=== PATIENT | female | born 1995 | race Caucasian/White ===

== ENCOUNTER 2025-03-14 15:30 | Day surgery (SDC) | payer SELFPAY ==
[2025-03-14] MEDS ORDERED: hydrALAZINE 20 MG/ML VIAL SLOW IVP PRN (15:59)
[2025-03-14 16:21] VITALS: BMI 35.1
[2025-03-14 17:03] LABS: #Basophils 0.03 10x3/uL (0.0-0.2); #Eosinophils Less than 0.03 10x3/uL (0.0-0.5); #Monocytes 0.46 10x3/uL (0.0-1.1); #Neutrophils 5.69 10x3/uL (1.5-8.4); %Basophils 0.4 % (0.0-2.0); %Eosinophils 0.1 % (0.0-6.0); %Lymphocytes 22.7 % (18.0-47.0); %Monocytes 5.7 % (0.0-10.0); %Neutrophils 70.9 % (40.0-75.0); Hematocrit 33.6 % (34.9-44.5); Hemoglobin 10.9 g/dL (12.0-15.5); Mean Corpuscular Hemoglobin 25.2 pg (27.0-33.0); Mean Corpuscular Volume 77.8 fL (81.6-98.3); Platelet Count 175 10x3/uL (150-450); Red Blood Cell (RBC) Count 4.32 10x6/uL (3.90-5.03); White Blood Cell (WBC) Count 8.03 10x3/uL (3.5-10.5)
[2025-03-14 17:04] LABS: Protein, Urine Random Quant 449.0 mg/dL (1-14)
[2025-03-14 17:26] LABS: ALT (SGPT) 15 U/L (Less than 34); AST (SGOT) 35 U/L (11-34); Albumin 2.4 g/dL (3.1-4.5); Alkaline Phosphatase 222 U/L (40-110); Anion Gap 15 mmol/L (10-20); BUN (Urea Nitrogen) 5 mg/dL (7.0-18.7); Bilirubin, Total 0.3 mg/dL (0.3-1.2); Calc. Creatinine Clearance 149 mL/min (70-130); Calcium 8.8 mg/dL (7.8-10.44); Carbon Dioxide 21 mmol/L (22-29); Chloride 108 mmol/L (98-107); Globulin 4.0 g/dL (2.4-3.5); Glucose 67 mg/dL (70-105); Potassium 3.5 mmol/L (3.5-5.1); Sodium 140 mmol/L (136-145)
== END 2025-03-14 17:51 | disposition home or self-care (01) ==
LOC: CSHLD/OP 15:30
PROVIDERS: ATTEND Family Medicine
DX: O14.03 Mild to moderate pre-eclampsia, third trimester (principal); O47.03 False labor before 37 completed weeks of gestation, third trimester; O26.833 Pregnancy related renal disease, third trimester; Q63.2 Ectopic kidney; Z3A.31 31 weeks gestation of pregnancy; Z91.041 Radiographic dye allergy status; Z91.013 Allergy to seafood
CPT/HCPCS: 36415; 80053; 82570; 84156; 85025

== ENCOUNTER 2025-03-18 01:49 | Inpatient (IN) | payer MEDICAID, SELFPAY ==
[2025-03-18] MEDS ORDERED: Bicitra 30 ML UDCUP PO PRN (02:12)
[2025-03-18] MEDS ORDERED: Famotidine/PF 20 mg/2ml Vial SLOW IVP PRN (02:12)
[2025-03-18] MEDS ORDERED: Tranexamic Acid 1,000 MG/10 ML VIAL IVP PRN (02:13)
[2025-03-18] MEDS ORDERED: Diphenoxylate HCl/Atropine Tablet PO PRN ×2 (02:13)
[2025-03-18] MEDS ORDERED: Carboprost 250 MCG/ML AMP IM PRN (02:13)
[2025-03-18] MEDS ORDERED: Ondansetron PF 4 MG/2 ML Vial IVP PRN (02:13)
[2025-03-18] MEDS ORDERED: Methylergonovine 0.2 MG/ML VIAL IM PRN (02:13)
[2025-03-18] MEDS ORDERED: hydrALAZINE 20 MG/ML VIAL SLOW IVP PRN (02:13)
[2025-03-18] MEDS ORDERED: Oxytocin 30 units/NS 500 ML 500 ML IV SCH (02:15)
[2025-03-18] MEDS ORDERED: diphenhydrAMINE 25 MG CAP PO PRN (02:46)
[2025-03-18] MEDS ORDERED: diphenhydrAMINE 50 MG/ML VIAL IVP PRN (02:46)
[2025-03-18] MEDS ORDERED: diphenhydrAMINE 50 MG/ML VIAL IM PRN (02:46)
[2025-03-18 02:56] VITALS: BMI 34.3
[2025-03-18] MEDS ORDERED: Communication Order-Pharmacy FS SCH (03:00)
[2025-03-18 03:47] LABS: Analyzer IN Cardio CS NICU; Critical Notified By: CP.PH; pH (Cord, venous) 7.348 (7.250-7.350)
[2025-03-18 03:54] LABS: Analyzer IN Cardio CS NICU; Critical Notified By: CP.PH
[2025-03-18] MEDS ORDERED: Calcium Gluc 4.6 MEQ/10 ML (100 MG/ML) SLOW IVP PRN (03:55)
[2025-03-18] MEDS: fentaNYL Citrate/PF 55 ML IV SCH (04:27)
[2025-03-18 05:00] LABS: Hep B Surf Ag - L&D Non-Reactive S/CO (NonReactive)
[2025-03-18 05:02] LABS: Syphilis Antibody Index 0.07 S/CO (<1.00 Non-Reactive)
[2025-03-18 05:03] LABS: Platelet Count 173 10x3/uL (150-450)
[2025-03-18 05:04] LABS: Hematocrit 30.1 % (34.9-44.5); Hemoglobin 9.8 g/dL (12.0-15.5); Mean Corpuscular Hemoglobin 24.9 pg (27.0-33.0); Mean Corpuscular Volume 76.6 fL (81.6-98.3); Red Blood Cell (RBC) Count 3.93 10x6/uL (3.90-5.03); White Blood Cell (WBC) Count 15.31 10x3/uL (3.5-10.5)
[2025-03-18 06:14] LABS: HIV (1/2) Antibody/Antigen Non-Reactive (NonReactive); HIV 1/2 INDEX 0.11 S/CO (<1.00)
[2025-03-18] MEDS: Ondansetron PF 4 MG/2 ML Vial IVP PRN (18:51)
[2025-03-18] MEDS: Magnesium Sulfate 20 gm/500 ml 20 GM/500 ML BAG IVPB SCH (21:31)
[2025-03-19] MEDS ORDERED: SUCCINYLCHOLINE/SOD CL,ISO/PF 200 MG/10 ML SYRINGE FS ONE (02:00)
[2025-03-19] MEDS ORDERED: Oxytocin 10 UNITS/ML VIAL ONE (02:00)
[2025-03-19] MEDS: hydrALAZINE 20 MG/ML VIAL SLOW IVP SCH (04:54)
[2025-03-19 06:07] LABS: Hematocrit 32.1 % (34.9-44.5); Hemoglobin 10.8 g/dL (12.0-15.5); Mean Corpuscular Hemoglobin 25.7 pg (27.0-33.0); Mean Corpuscular Volume 76.4 fL (81.6-98.3); Platelet Count 191 10x3/uL (150-450); Red Blood Cell (RBC) Count 4.20 10x6/uL (3.90-5.03); White Blood Cell (WBC) Count 17.78 10x3/uL (3.5-10.5)
[2025-03-19] MEDS: Ibuprofen 800 MG TAB PO PRN (09:15)
[2025-03-19] MEDS: Metoprolol Succinate XL 25 MG ER.TAB PO SCH (13:00)
[2025-03-20] MEDS: PROPOFOL 20 ML ONE (20:54)
[2025-03-20] MEDS: Dexamethasone 10 MG/ML VIAL ONE (20:54)
[2025-03-20] MEDS: Magnesium Sulfate 20 gm/500 ml 20 GM/500 ML BAG ONE (20:54)
[2025-03-20] MEDS: Oxytocin 10 UNITS/ML VIAL ONE (20:54)
[2025-03-20] MEDS: CEFAZOLIN 1 GM VIAL ONE ×2 (20:54)
[2025-03-21] MEDS: HYDROcodone/Acetaminophen 5/325 mg Tablet PO PRN ×2 (08:32→13:13)
[2025-03-21 16:19] VITALS: TEMP 98.1
[2025-03-21 16:33] VITALS: BP 139/95
== END 2025-03-21 19:15 | disposition home or self-care (01) | DRG 788 ==
LOC: CSHLD/OP 01:49 → CSHLD 02:44 → CSHPP 03-19 11:00
PROVIDERS: ADMIT Family Medicine; ATTEND Family Medicine
PROC: 10D00Z1 Extraction of Products of Conception, Low, Open Approach (ICD-10-PCS; principal; 2025-03-18)
PROC: 4A1HXCZ Monitoring of Products of Conception, Cardiac Rate, External Approach (ICD-10-PCS; 2025-03-18)
DX: O14.94 Unspecified pre-eclampsia, complicating childbirth (principal); O45.93 Premature separation of placenta, unspecified, third trimester; Z3A.32 32 weeks gestation of pregnancy; Z37.0 Single live birth; Z91.013 Allergy to seafood; Z91.041 Radiographic dye allergy status; O32.0XX0 Maternal care for unstable lie, not applicable or unspecified; O99.893 Other specified diseases and conditions complicating puerperium; R11.0 Nausea
CPT/HCPCS: 36415; 36430; 51702; 82805; 85027; 86780; 86850; 86900; 86901; 87340; 87389; 88307; 99285; J0360; J0690; J1100; J2405; J2550; J2590; J2704; J3010; J3475; J7120; Q0162

== ENCOUNTER 2025-04-02 00:08 | Inpatient (IN) | payer MEDICAID ==
[2025-04-02 01:08] LABS: Glucose, Urine (Dipstick) Normal (Negative); Protein, Urine (Dipstick) 30 mg/dl (Neg-Trace); Specific Gravity, Urine 1.010 (1.005-1.030)
[2025-04-02 01:23] LABS: #Basophils 0.05 10x3/uL (0.0-0.2); #Eosinophils 0.11 10x3/uL (0.0-0.5); #Monocytes 0.56 10x3/uL (0.0-1.1); #Neutrophils 4.61 10x3/uL (1.5-8.4); %Basophils 0.6 % (0.0-2.0); %Eosinophils 1.4 % (0.0-6.0); %Lymphocytes 30.8 % (18.0-47.0); %Monocytes 7.2 % (0.0-10.0); %Neutrophils 59.6 % (40.0-75.0); Hematocrit 29.1 % (34.9-44.5); Hemoglobin 9.1 g/dL (12.0-15.5); Mean Corpuscular Hemoglobin 24.9 pg (27.0-33.0); Mean Corpuscular Volume 79.5 fL (81.6-98.3); Platelet Count 341 10x3/uL (150-450); Red Blood Cell (RBC) Count 3.66 10x6/uL (3.90-5.03); White Blood Cell (WBC) Count 7.75 10x3/uL (3.5-10.5)
[2025-04-02 01:32] VITALS: BMI 31.1
[2025-04-02 01:34] LABS: Protein, Urine Random Quant 11.0 mg/dL (1-14)
[2025-04-02 01:40] LABS: Leukocyte 250 (Negative)
[2025-04-02 01:41] LABS: ALT (SGPT) 9 U/L (Less than 34); AST (SGOT) 23 U/L (11-34); Albumin 3.4 g/dL (3.1-4.5); Alkaline Phosphatase 131 U/L (40-110); Anion Gap 15 mmol/L (10-20); BUN (Urea Nitrogen) 6 mg/dL (7.0-18.7); Bilirubin, Total 0.3 mg/dL (0.3-1.2); Calc. Creatinine Clearance 117 mL/min (70-130); Calcium 8.8 mg/dL (7.8-10.44); Carbon Dioxide 22 mmol/L (22-29); Chloride 107 mmol/L (98-107); Globulin 3.4 g/dL (2.4-3.5); Glucose 85 mg/dL (70-105); Potassium 3.3 mmol/L (3.5-5.1); Sodium 141 mmol/L (136-145)
[2025-04-02 01:42] LABS: Bacteria/HPF 1+ HPF (None Seen); CAUTI Indications for Culture Pelvic or flank pain
[2025-04-02 01:43] LABS: Urine Culture Reflex No No
[2025-04-02] MEDS ORDERED: Calcium Gluc 4.6 MEQ/10 ML (100 MG/ML) SLOW IVP PRN (01:47)
[2025-04-02] MEDS ORDERED: Magnesium Sulfate 20 gm/500 ml 20 GM/500 ML BAG IVPB SCH (02:00)
[2025-04-02] MEDS ORDERED: Ibuprofen 200 MG TAB PO PRN (02:51)
[2025-04-02] MEDS: cefTRIAXone\\ROCEPHIN 1 GM in Sodium Chloride 0.9% 100 ML IVPB SCH (03:19)
[2025-04-02] MEDS: Potassium Chloride 10 MEQ in Premix 1 BAG IVPB SCH (04:33)
[2025-04-02] MEDS: Ondansetron PF 4 MG/2 ML Vial IVP PRN (11:05)
[2025-04-02 11:27] LABS: Magnesium 7.7 mg/dL (1.6-2.6)
[2025-04-02] MEDS: Acetaminophen 325 MG TAB PO PRN (19:56)
[2025-04-03 05:34] LABS: ALT (SGPT) 11 U/L (Less than 34); AST (SGOT) 31 U/L (11-34); Albumin 3.4 g/dL (3.1-4.5); Alkaline Phosphatase 131 U/L (40-110); Anion Gap 13 mmol/L (10-20); BUN (Urea Nitrogen) 5 mg/dL (7.0-18.7); Bilirubin, Total 0.3 mg/dL (0.3-1.2); Calc. Creatinine Clearance 113 mL/min (70-130); Calcium 7.3 mg/dL (7.8-10.44); Carbon Dioxide 27 mmol/L (22-29); Chloride 103 mmol/L (98-107); Globulin 3.5 g/dL (2.4-3.5); Glucose 109 mg/dL (70-105); Potassium 3.8 mmol/L (3.5-5.1); Sodium 139 mmol/L (136-145)
[2025-04-03] MEDS: Ferrous Sulfate 325 MG TAB PO SCH (19:33)
[2025-04-03] MEDS: Magnesium Sulfate 20 gm/500 ml 20 GM/500 ML BAG ONE (19:35)
[2025-04-04] MEDS: Metoprolol Succinate XL 100 MG ER.TAB PO SCH (08:59)
[2025-04-04 11:51] VITALS: BP 131/87; TEMP 97.7
== END 2025-04-04 11:00 | disposition home or self-care (01) | DRG 776 ==
LOC: EEVIPCON 00:08 → CSHERS 00:08 → CSHLD 00:55 → CSHPP 04-03 08:06
PROVIDERS: ADMIT Obstetrics & Gynecology; ATTEND Obstetrics & Gynecology
DX: O14.95 Unspecified pre-eclampsia, complicating the puerperium (principal); N39.0 Urinary tract infection, site not specified; O99.53 Diseases of the respiratory system complicating the puerperium; Z91.013 Allergy to seafood; O86.20 Urinary tract infection following delivery, unspecified; O90.81 Anemia of the puerperium; J45.909 Unspecified asthma, uncomplicated; O99.345 Other mental disorders complicating the puerperium; F41.9 Anxiety disorder, unspecified; F90.9 Attention-deficit hyperactivity disorder, unspecified type; O16.5 Unspecified maternal hypertension, complicating the puerperium
CPT/HCPCS: 36415; 51702; 80053; 81001; 82570; 83735; 84156; 85025; 93005; 93010; 99285; J0696; J2405; J3480